=== PATIENT | female | born 1950 | race Caucasian/White ===

== ENCOUNTER 2020-04-11 12:44 | Emergency (ER) | payer OTHER, BC ==
[~2020-04-11] VITALS: Ht 162.6 cm; Wt 64.4 kg
[2020-04-11 12:51] VITALS: Ht 162.6 cm; Wt 64.4 kg
[2020-04-11 13:29] LABS: BASOPHIL % 0.6 % (0-2); PLATELET COUNT 217 x10^3mcL (130-400); RED CELL DISTRIBUTION WIDTH 12.1 % (11.5-14.5)
[2020-04-11 13:38] LABS: CALCIUM 8.9 mg/dL (8.5-10.1); CARBON DIOXIDE 28.6 mmol/L (21-32); POTASSIUM SERUM 3.6 mmol/L (3.5-5.1)
[2020-04-11 13:42] LABS: ALBUMIN 3.8 g/dL (3.4-5.0); BILIRUBIN TOTAL 0.4 mg/dL (0.20-1.00); TOTAL PROTEIN, SERUM 6.7 g/dL (6.4-8.2)
[2020-04-11 15:14] VITALS: BP 130/71
== END 2020-04-11 15:14 | disposition home or self-care (01) ==
LOC: ED 12:44
PROVIDERS: Emergency Medicine
DX: R55 Syncope and collapse (principal); R11.10 Vomiting, unspecified; R53.1 Weakness; Z88.5 Allergy status to narcotic agent
CPT/HCPCS: 82962; J7030